=== PATIENT | female | born 1945 | race Caucasian/White ===

== ENCOUNTER → 2018-06-24 | Outpatient (CLI) | payer MEDICARE ==
--- NOTE | 2018-06-24 15:47 | RADIOLOGY REPORT (SQ) ---
EXAM DESCRIPTION: RIBS RIGHT W/PA CHEST COMPLETED DATE/TIME: 06/24/2018 3:25 pm REASON FOR STUDY: PLEURODYNIA R07.81 PLEURODYNIA COMPARISON: None. TECHNIQUE: Frontal view of the chest and additional views of the right ribs acquired. NUMBER OF VIEWS: Five views LIMITATIONS: None. FINDINGS: FRONTAL CXR: No pneumothorax. Chronic interstitial changes. RIBS: Cannot exclude nondisplaced fracture of the 8th or 9th rib laterally. This is only suggested o n a single view. OTHER: No other significant finding. IMPRESSION: Chronic lung changes. Cannot exclude a nondisplaced fracture of the right 8th or 9th ri b laterally. COMMENT: SITE OF TRAUMA/COMPLAINT MARKED/STAMP COMPLETED: YES. TECHNICAL DOCUMENTATION: JOB ID: [id number] [employer]- All Rights Reserved Reading location - IP/workstation name: [email or web address]
== END ==
LOC: OD 15:06
PROVIDERS: ATTEND Internal Medicine Medical Oncology
DX: R07.81 Pleurodynia (principal)

== ENCOUNTER 2018-09-09 11:55 | Inpatient (IN) | payer MEDICARE ==
[~2018-09-09 11:55] MED LIST: ACETAMINOPHEN 325 MG TABLET PO PRN; FUROSEMIDE INJ/PF 20 MG/2 ML SDV IV PRN
[2018-09-09 14:04] LABS: HEMATOCRIT 21.4 % (36.0-47.0); MEAN CORPUSCULAR HEMOGLOBIN 32.3 pg (27.0-33.4); MEAN CORPUSCULAR HGB CONC 36.7 g/dL (32.0-36.0); MEAN CORPUSCULAR VOLUME 88 fl (80-97); PLATELET COUNT 333 10^3/uL (150-450); RED BLOOD COUNT 2.43 10^6/uL (3.72-5.28); RED CELL DISTRIBUTION WIDTH 22.7 % (11.5-14.0); WHITE BLOOD COUNT 2.7 10^3/uL (4.0-10.5)
[2018-09-09 14:07] LABS: HEMOGLOBIN 7.8 g/dL (12.0-15.5)
[2018-09-09] MEDS: DIPHENHYDRAMINE HCL 25 MG CAPSULE PO PRN ×2 (15:43→20:24)
[2018-09-09] MEDS ORDERED: LIDOCAINE 2% VISCOUS SOLN 20 ML UDCUP PO PRN (18:50)
[2018-09-09] MEDS ORDERED: ALBUTEROL SULFATE HFA (90 MCG/PUFF) 8 GM MDI (1 MDI/ER DISP) IH PRN (19:05)
--- NOTE | 2018-09-09 19:05 | PDOC H&P ---
History of Present Illness Admission Date/PCP: 09/09/18 11:55 NICK DONALDSON MD Patient complains of: Symptomatic Anemia History of Present Illness: ODALYS LOPEZ is a 73 year old female patient of Dr. Donaldson recently diagnosed with non-small cell squamous lung cancer currently on radiation therapy who presented with worsening hemoglobin of abrupt drop and associated dysphagia. She reported shortness of breath and significant desaturation off supplemental oxygen. She denied any bloody or tarry stool. She reported no bowel movement for last 2 days. No dizziness, headache, or loss of consciousness. Patient reported that her pain with swallowing is more severe beneath her radiation marker area. She reported significant coughing with eating and swallowing. Past Medical History Cardiac Medical History: Reports: None Pulmonary Medical History: Reports: Chronic Obstructive Pulmonary Disease (COPD) , Other - Hoarseness EENT Medical History: Reports: None Neurological Medical History: Reports: None Endocrine Medical History: Reports: None Malignancy Medical History: Reports: Lung Cancer Psychiatric Medical History: Reports: Depression Hematology: Reports: Other - Excessive postexertional fatigue Social History Smoking Status: Former Smoker Number of Years Smokin Frequency of Alcohol Use: None Hx Recreational Drug Use: No Drugs: None Hx Prescription Drug Abuse: No Family History Parental Family History Reviewed: Yes Children Family History Reviewed: Yes Sibling(s) Family History Reviewed.: Yes Medication/Allergy Home Medications: Albuterol Sulfate [Ventolin HFA MDI 18 GM] 2 puff IH Q6HP PRN 09/09/18 Alprazolam [Xanax 0.5 mg Tablet] 0.5 mg PO QHS 09/09/18 Amitriptyline HCl [Elavil 50 mg Tablet] 50 mg PO QHS 09/09/18 Aripiprazole [Abilify 10 mg Tablet] 10 mg PO DAILY 09/09/18 Calcium Carbonate [Calcium] 1,250 mg PO BIDBS 09/09/18 Cetirizine HCl [Zyrtec 10 mg Tablet] 10 mg PO DAILY 09/09/18 Cholecalciferol (Vitamin D3) [Vitamin D3 400 Unit Tablet] 200 unit PO BIDBS Cholecalciferol (Vitamin D3) [Vitamin D3 400 Unit Tablet] 400 unit PO DAILY Esomeprazole Magnesium [Nexium] 40 mg PO Q6AM 09/09/18 Gemfibrozil [Lopid 600 mg Tablet] 600 mg PO BIDACBS 09/09/18 Hydrochlorothiazide [Hydrodiuril 25 mg Tablet] 25 mg PO DAILY 09/09/18 Magnesium Oxide [Magnesium] 250 mg PO DAILY 09/09/18 Nystatin [Mycostatin Ointment 15 gm] 1 applic TOP BID 09/09/18 Ondansetron HCl [Zofran 8 mg Tablet] 8 mg PO .SEE COMMENTS 09/09/18 Potassium Chloride [K-Tab ER] 40 meq PO BID 09/09/18 Allergies/Adverse Reactions: codeine Allergy (Verified 09/09/18 13:50) Review of Systems Constitutional: PRESENT: fatigue, weakness Eyes: ABSENT: visual disturbances Ears: ABSENT: hearing changes Nose, Mouth, and Throat: ABSENT: headache(s), mouth pain, sore throat, vertigo, other Cardiovascular: PRESENT: dyspnea on exertion Respiratory: PRESENT: cough, dyspnea Gastrointestinal: PRESENT: constipation, dysphagia Genitourinary: ABSENT: dysuria, hematuria Musculoskeletal: ABSENT: joint swelling Integumentary: ABSENT: rash, wounds Neurological: ABSENT: abnormal gait, abnormal speech, confusion, dizziness, focal weakness, syncope Endocrine: ABSENT: cold intolerance, heat intolerance, polydipsia, polyuria Hematologic/Lymphatic: PRESENT: lymphadenopathy Allergic/Immunologic: ABSENT: as per HPI, seasonal rhinorrhea, other Physical Exam Vital Signs: Temp Pulse Resp BP Pulse Ox 98.0 F 109 H 16 103/51 L 89 L 09/09/18 17:54 09/09/18 17:54 09/09/18 17:54 09/09/18 17:54 09/09/18 17:54 Intake & Output 09/08/18 09/09/18 09/10/18 06:59 06:59 06:59 Intake Total 0 Balance 0 Weight 54 kg General appearance: PRESENT: mild distress - on supplemental oxygen via nasal cannula Head exam: PRESENT: atraumatic, normocephalic Eye exam: PRESENT: conjunctiva pink, EOMI, PERRLA. ABSENT: scleral icterus Ear exam: PRESENT: normal external ear exam Mouth exam: PRESENT: moist Teeth exam: ABSENT: dental caries, dental tenderness, edentulous, poor dentation , other Throat exam: ABSENT: post pharyngeal erythema, tonsillar erythema, tonsillar exudate, tonsillogmegaly, other Neck exam: PRESENT: full ROM. ABSENT: carotid bruit, JVD, lymphadenopathy, thyromegaly Respiratory exam: PRESENT: clear to auscultation obdulia Cardiovascular exam: PRESENT: RRR. ABSENT: diastolic murmur, rubs, systolic murmur Pulses: PRESENT: +2 pedal pulses bilateral Vascular exam: PRESENT: normal capillary refill, pallor GI/Abdominal exam: PRESENT: normal bowel sounds, soft. ABSENT: distended, guarding, mass, organolmegaly, rebound, tenderness Rectal exam: PRESENT: deferred Extremities exam: ABSENT: pedal edema Musculoskeletal exam: PRESENT: normal inspection Neurological exam: PRESENT: alert, awake, oriented to person, oriented to place , oriented to time, oriented to situation, CN II-XII grossly intact. ABSENT: motor sensory deficit Psychiatric exam: PRESENT: appropriate affect, normal mood. ABSENT: homicidal ideation, suicidal ideation Skin exam: PRESENT: dry, warm. ABSENT: rash Results Laboratory Results: 09/09/18 13:33 09/09/18 09/09/18 13:33 13:33 WBC 2.7 L RBC 2.43 L Hgb 7.8 L Hct 21.4 L MCV 88 MCH 32.3 MCHC 36.7 H RDW 22.7 H Plt Count 333 Blood Type O POSITIVE Antibody Screen NEGATIVE Assessment & Plan - Diagnosis (1) Symptomatic anemia Is this a current diagnosis for this admission?: Yes Plan: See admitting attending physician. (2) Radiation-induced esophagitis Is this a current diagnosis for this admission?: Yes Plan: See admitting attending physician. (3) Chronic obstructive pulmonary disease with hypoxia Is this a current diagnosis for this admission?: Yes Plan: See admitting attending physician. (4) Persistent insomnia Is this a current diagnosis for this admission?: Yes Plan: See admitting attending physician. (5) Malignant neoplasm of middle lobe of right lung Is this a current diagnosis for this admission?: Yes Plan: See admitting attending physician. (6) HLD (hyperlipidemia) Qualifiers: Hyperlipidemia type: unspecified Qualified Code(s): E78.5 - Hyperlipidemia , unspecified Is this a current diagnosis for this admission?: Yes Plan: See admitting attending physician. (7) Depression Qualifiers: Depression Type: major depressive disorder Is this a current diagnosis for this admission?: Yes Plan: See admitting attending physician. - Time Time Spent: 50 to 70 Minutes Medications reviewed and adjusted accordingly: Yes Anticipated discharge: Home with Homehealth Within: Other - Inpatient Certification Based on my medical assessment, after consideration of the patient's comorbidities, presenting symptoms, or acuity I expect that the services needed warrant INPATIENT care.: Yes I certify that my determination is in accordance with my understanding of Medicare's requirements for reasonable and necessary INPATIENT services [42 CFR 412.3e].: Yes Medical Necessity: Need Close Monitoring Due to Risk of Patient Decompensation, Need For IV Fluids, Risk of Complication if Not Cared For in Hospital Post Hospital Care: D/C Cuff Setter Lockstitch Documentation - Plan Summary Plan Summary: See admitting attending physician. I discussed case with Dr. Donaldson and Dr. Webster, nuclear auxiliary operator. I discussed at length with patient and family at bedside regarding care plan.
[2018-09-09] MEDS ORDERED: ONDANSETRON HCL 8 MG TABLET PO SCH (19:15)
[2018-09-09] MEDS ORDERED: ALBUTEROL SULFATE HFA (90 MCG/PUFF) 200 PUFF/8.5 GM MDI IH PRN (19:22)
--- NOTE | 2018-09-09 19:23 | PDOC CONSULTATION ---
Consultation Consult Date: 09/09/18 History of Present Illness Admission Date/PCP: 09/09/18 11:55 NICK DONALDSON MD History of Present Illness: ODALYS LOPEZ is a 73 year old female patient was admitted today with drop in H&H and odynophagia. Her admission hemoglobin was 7 while it was 12 on 08/25/2018. She has not had any hematemesis, melena or bright red blood per rectum. Her main complaint is that of odynophagia that started about 2 weeks ago. She has pain whenever she drinks or eats but she is able to get the food down. She has been drinking ice cold drinks and sometimes very hard foods. She takes a PPI and has been on this for years. She has been receiving radiation to her chest for her lung cancer over the last 2 months. She is also receiving chemotherapy. I reviewed her hemoglobin trend and has been going down slowly over the last few weeks. Past Medical History Cardiac Medical History: Reports: None Pulmonary Medical History: Reports: Chronic Obstructive Pulmonary Disease (COPD) , Other - Hoarseness EENT Medical History: Reports: None, Other - Excessive postexertional fatigue Neurological Medical History: Reports: None Endocrine Medical History: Reports: None Malignancy Medical History: Reports: Lung Cancer Psychiatric Medical History: Reports: Depression Hematology: Reports: Other - Excessive postexertional fatigue Social History Smoking Status: Former Smoker Number of Years Smokin Frequency of Alcohol Use: None Hx Recreational Drug Use: No Drugs: None Hx Prescription Drug Abuse: No Family History Parental Family History Reviewed: No Children Family History Reviewed: NA Sibling(s) Family History Reviewed.: NA Medication/Allergy Home Medications: Albuterol Sulfate [Ventolin HFA MDI 18 GM] 2 puff IH Q6HP PRN 09/09/18 Alprazolam [Xanax 0.5 mg Tablet] 0.5 mg PO QHS 09/09/18 Amitriptyline HCl [Elavil 50 mg Tablet] 50 mg PO QHS 09/09/18 Aripiprazole [Abilify 10 mg Tablet] 10 mg PO DAILY 09/09/18 Calcium Carbonate [Calcium] 1,250 mg PO BIDBS 09/09/18 Cetirizine HCl [Zyrtec 10 mg Tablet] 10 mg PO DAILY 09/09/18 Cholecalciferol (Vitamin D3) [Vitamin D3 400 Unit Tablet] 200 unit PO BIDBS Cholecalciferol (Vitamin D3) [Vitamin D3 400 Unit Tablet] 400 unit PO DAILY Esomeprazole Magnesium [Nexium] 40 mg PO Q6AM 09/09/18 Gemfibrozil [Lopid 600 mg Tablet] 600 mg PO BIDACBS 09/09/18 Hydrochlorothiazide [Hydrodiuril 25 mg Tablet] 25 mg PO DAILY 09/09/18 Magnesium Oxide [Magnesium] 250 mg PO DAILY 09/09/18 Nystatin [Mycostatin Ointment 15 gm] 1 applic TOP BID 09/09/18 Ondansetron HCl [Zofran 8 mg Tablet] 8 mg PO .SEE COMMENTS 09/09/18 Potassium Chloride [K-Tab ER] 40 meq PO BID 09/09/18 Allergies/Adverse Reactions: codeine Allergy (Verified 09/09/18 13:50) Review of Systems All systems: reviewed and no additional remarkable complaints except as stated Physical Exam Vital Signs: Temp Pulse Resp BP Pulse Ox 97.4 F 104 H 16 126/68 H 99 09/09/18 18:39 09/09/18 18:39 09/09/18 18:39 09/09/18 18:39 09/09/18 18:39 Intake & Output 09/08/18 09/09/18 09/10/18 06:59 06:59 06:59 Intake Total 300 Balance 300 Weight 54 kg Exam: General: Patient is alert and looks well. HEENT: There is pallor but no jaundice. PERRLA. Oropharynx normal Respiratory: She has kyphosis no respiratory distress. Chest wall palpitation was unremarkable. Breath sounds were normal Cardiovascular: Heart sounds 1 and 2 normal with no murmurs. Abdominal: Not distended. Soft and nontender. Liver and spleen not palpable. No ascites demonstrated. Bowel sounds active. Rectal examination was deferred. Extremities: No edema Neurological: Alert and oriented x4. Grossly nonfocal. Normal speech Skin: No significant rash Psychological: Normal affect Results Laboratory Results: 09/09/18 13:33 09/09/18 09/09/18 13:33 13:33 WBC 2.7 L RBC 2.43 L Hgb 7.8 L Hct 21.4 L MCV 88 MCH 32.3 MCHC 36.7 H RDW 22.7 H Plt Count 333 Blood Type O POSITIVE Antibody Screen NEGATIVE Assessment & Plan - Diagnosis (1) Odynophagia Is this a current diagnosis for this admission?: Yes Plan: She has had odynophagia for the last few weeks and this is most likely from radiation esophagitis. She has been eating and drinking very cold and sometimes very hot foods and I advised against this. I would suggest we increase her PPI to twice a day, use Carafate 4 times a day for 10 days and Viscous Lidocaine before meals. If her symptoms continue I will then perform an endoscopy.. (2) Anemia Qualifiers: Folate deficiency anemia type: drug-induced Is this a current diagnosis for this admission?: Yes Plan: I suspect her anemia is related to her chemotherapy as her hemoglobin has been dropping gradually over the last few weeks. She has not had any obvious GI blood loss. I would hold off on endoscopies at this time unless obvious GI blood loss becomes a problem. She will continue to follow-up with Dr. Donaldson (3) Radiation-induced esophagitis Is this a current diagnosis for this admission?: Yes
[2018-09-09] MEDS ORDERED: BISACODYL 10 MG SUPP.RECT PR ONE (20:00)
[2018-09-09] MEDS: LANSOPRAZOLE 30 MG TAB.RAP.DR PO SCH (20:22)
[2018-09-09] MEDS: SUCRALFATE SUSP 1 GM/10 ML UDCUP PO SCH (20:22)
[2018-09-09 20:29] LABS: ALANINE AMINOTRANSFERASE 37 U/L (9-52); ALBUMIN 3.4 g/dL (3.5-5.0); ALKALINE PHOSPHATASE 123 U/L (38-126); ANION GAP 8 (5-19); ASPARTATE AMINO TRANSFERASE 22 U/L (14-36); BILIRUBIN,DIRECT 0.5 mg/dL (0.0-0.4); BILIRUBIN,TOTAL 1.3 mg/dL (0.2-1.3); BLOOD UREA NITROGEN 10 mg/dL (7-20); CALCIUM 8.6 mg/dL (8.4-10.2); CARBON DIOXIDE 28 mmol/L (22-30); CHLORIDE 103 mmol/L (98-107); GLUCOSE 90 mg/dL (75-110); SODIUM 138.8 mmol/L (137-145); TOTAL PROTEIN 6.2 g/dL (6.3-8.2)
[2018-09-09] MEDS ORDERED: POTASSIUM CHLORIDE 20 MEQ/50 ML RTU IV SCH (22:45)
[2018-09-09] MEDS: AMITRIPTYLINE HCL 50 MG TABLET PO SCH (23:01)
[2018-09-09] MEDS: ALPRAZOLAM 0.5 MG TABLET PO SCH (23:01)
[2018-09-10] MEDS: MAGNESIUM SULFATE 1 GM/D5W 100 ML IV SCH ×2 (00:16→01:45)
[2018-09-10] MEDS: SUCRALFATE SUSP 1 GM/10 ML UDCUP PO SCH ×4 (00:45→17:35)
[2018-09-10] MEDS ORDERED: BISACODYL 10 MG SUPP.RECT PR ONE (01:00)
[2018-09-10] MEDS: POTASSIUM CHLORIDE 20 MEQ/50 ML RTU IV SCH ×5 (03:03→16:56)
[2018-09-10] MEDS: LANSOPRAZOLE 30 MG TAB.RAP.DR PO SCH ×2 (06:43→17:34)
[2018-09-10] MEDS: CALCIUM CARBONATE 500 MG TABLET PO SCH ×2 (09:48→17:32)
[2018-09-10] MEDS: HYDROCHLOROTHIAZIDE 25 MG TABLET PO SCH (09:49)
[2018-09-10] MEDS: CHOLECALCIFEROL (D3) 400 UNIT TABLET PO SCH ×3 (09:50→17:33)
[2018-09-10] MEDS: CETIRIZINE 10 MG TABLET PO SCH (09:53)
[2018-09-10] MEDS: GEMFIBROZIL 600 MG TABLET PO SCH ×2 (09:53→17:34)
[2018-09-10] MEDS: ARIPIPRAZOLE 5 MG TABLET PO SCH (09:53)
[2018-09-10] MEDS: NYSTATIN OINTMENT 15 GM TUBE TOP SCH ×2 (09:54→17:36)
[2018-09-10] MEDS ORDERED: (PENDING PHARMACY ID) (Aripiprazole [Abilify 10 Mg Tablet] 10 MG) PO SCH (10:00)
[2018-09-10] MEDS ORDERED: (PENDING PHARMACY ID) (Magnesium Oxide [Magnesium] 250 MG) PO SCH (10:00)
[2018-09-10 12:20] LABS: ANION GAP 7 (5-19); BLOOD UREA NITROGEN 8 mg/dL (7-20); CALCIUM 8.5 mg/dL (8.4-10.2); CARBON DIOXIDE 30 mmol/L (22-30); CHLORIDE 99 mmol/L (98-107); GLUCOSE 119 mg/dL (75-110); POTASSIUM 3.5 mmol/L (3.6-5.0); SODIUM 135.8 mmol/L (137-145)
[2018-09-10 12:50] LABS: HEMATOCRIT 30.1 % (36.0-47.0); MEAN CORPUSCULAR HEMOGLOBIN 31.4 pg (27.0-33.4); MEAN CORPUSCULAR HGB CONC 35.9 g/dL (32.0-36.0); MEAN CORPUSCULAR VOLUME 87 fl (80-97); PLATELET COUNT 320 10^3/uL (150-450); RED BLOOD COUNT 3.45 10^6/uL (3.72-5.28); RED CELL DISTRIBUTION WIDTH 19.2 % (11.5-14.0); WHITE BLOOD COUNT 3.4 10^3/uL (4.0-10.5)
[2018-09-10 12:51] LABS: HEMOGLOBIN 10.8 g/dL (12.0-15.5)
[2018-09-10 12:53] LABS: ABSOLUTE LYMPHOCYTES# (MANUAL) 0.6 10^3/uL (0.5-4.7); ABSOLUTE MONOCYTES # (MANUAL) 0.2 10^3/uL (0.1-1.4); ABSOLUTE NEUTROPHILS# (MANUAL) 2.6 10^3/uL (1.7-8.2); ANISOCYTOSIS 2+; BASOPHILS % (MANUAL) 0 % (0-2); EOSINOPHILS % (MANUAL) 0 % (0-6); LYMPHOCYTES % (MANUAL) 18 % (13-45); MONOCYTES % (MANUAL) 7 % (3-13); NUCLEATED RED BLOOD CELLS 1 /100 WBC (0); OVALOCYTES 1+; PLATELET COMMENT ADEQUATE; POIKILOCYTOSIS 1+; SEGMENTED NEUTROPHILS % (MAN) 75 % (42-78); TOTAL CELLS COUNTED 100
[2018-09-10] MEDS ORDERED: ONDANSETRON HCL INJ/PF 4 MG/2 ML SDV IV PRN (13:32)
--- NOTE | 2018-09-10 18:48 | PDOC PROGRESS REPORT ---
Subjective Progress Note for:: 09/10/18 Subjective:: Patient continue to express significant pain and discomfort with swallowing. PO intake very limited so far today. s/p radiation therapy today at the time of m bedside evaluation. No fever or chills. Nausea with coughing following attempt at eating earlier today. No bowel movement so far since admission. Reason For Visit: LUNG CA,ANEMIA,POSSIBLE GI BLEEDING Physical Exam Vital Signs: Temp Pulse Resp BP Pulse Ox 98.2 F 107 H 16 110/67 93 09/10/18 16:00 09/10/18 16:00 09/10/18 16:00 09/10/18 16:00 09/10/18 16:00 Intake & Output 09/09/18 09/10/18 09/11/18 06:59 06:59 06:59 Intake Total 1344 100 Balance 1344 100 Weight 54 kg General appearance: PRESENT: no acute distress, mild distress - on supplemental oxygen via nassal cannula at 2L/min Head exam: PRESENT: atraumatic, normocephalic Eye exam: PRESENT: conjunctiva pink, EOMI, PERRLA. ABSENT: scleral icterus Ear exam: PRESENT: normal external ear exam Mouth exam: PRESENT: moist Respiratory exam: PRESENT: clear to auscultation obdulia Cardiovascular exam: PRESENT: RRR. ABSENT: diastolic murmur, rubs, systolic murmur Vascular exam: PRESENT: normal capillary refill. ABSENT: pallor GI/Abdominal exam: PRESENT: normal bowel sounds, soft. ABSENT: distended, guarding, mass, organolmegaly, rebound, tenderness Extremities exam: ABSENT: pedal edema Musculoskeletal exam: PRESENT: normal inspection Neurological exam: PRESENT: alert, awake, oriented to person, oriented to place , oriented to time, oriented to situation, CN II-XII grossly intact. ABSENT: motor sensory deficit Psychiatric exam: PRESENT: appropriate affect, normal mood. ABSENT: homicidal ideation, suicidal ideation Skin exam: PRESENT: dry, intact, warm. ABSENT: cyanosis, rash Results Laboratory Results: 09/10/18 10:25 09/10/18 10:25 09/09/18 09/09/18 09/09/18 13:33 20:00 20:48 WBC RBC Hgb Hct MCV MCH MCHC RDW Plt Count Seg Neutrophils % Lymphocytes % Monocytes % Eosinophils % Basophils % Absolute Neutrophils Absolute Lymphocytes Absolute Monocytes Absolute Eosinophils Absolute Basophils Sodium 138.8 Potassium 3.0 L* Chloride 103 Carbon Dioxide 28 Anion Gap 8 BUN 10 Creatinine 0.77 Est GFR ( Amer) > 60 Est GFR (Non-Af Amer) > 60 Glucose 90 Calcium 8.6 Magnesium 1.1 L* Total Bilirubin 1.3 AST 22 ALT 37 Alkaline Phosphatase 123 Total Protein 6.2 L Albumin 3.4 L Blood Type O POSITIVE Antibody Screen NEGATIVE 09/10/18 09/10/18 10:25 10:25 WBC 3.4 L RBC 3.45 L Hgb 10.8 L D Hct 30.1 L MCV 87 MCH 31.4 MCHC 35.9 RDW 19.2 H Plt Count 320 Seg Neutrophils % Not Reportable Lymphocytes % Not Reportable Monocytes % Not Reportable Eosinophils % Not Reportable Basophils % Not Reportable Absolute Neutrophils Not Reportable Absolute Lymphocytes Not Reportable Absolute Monocytes Not Reportable Absolute Eosinophils Not Reportable Absolute Basophils Not Reportable Sodium 135.8 L Potassium 3.5 L Chloride 99 Carbon Dioxide 30 Anion Gap 7 BUN 8 Creatinine 0.71 Est GFR ( Amer) > 60 Est GFR (Non-Af Amer) > 60 Glucose 119 H Calcium 8.5 Magnesium 1.9 Total Bilirubin AST ALT Alkaline Phosphatase Total Protein Albumin Blood Type Antibody Screen Assessment & Plan - Diagnosis (1) Symptomatic anemia Is this a current diagnosis for this admission?: Yes Plan: Improved post transfusion of 2 units PRBC. (2) Radiation-induced esophagitis Is this a current diagnosis for this admission?: Yes Plan: See attending physician orders. (3) Chronic obstructive pulmonary disease with hypoxia Is this a current diagnosis for this admission?: Yes (4) Persistent insomnia Is this a current diagnosis for this admission?: Yes (5) Malignant neoplasm of middle lobe of right lung Is this a current diagnosis for this admission?: Yes Plan: Scheduled for radiation treatment today. (6) HLD (hyperlipidemia) Qualifiers: Hyperlipidemia type: unspecified Qualified Code(s): E78.5 - Hyperlipidemia , unspecified Is this a current diagnosis for this admission?: Yes (7) Depression Qualifiers: Depression Type: major depressive disorder Is this a current diagnosis for this admission?: Yes (8) Constipation Qualifiers: Constipation type: unspecified constipation type Qualified Code(s): K59.00 - Constipation, unspecified Is this a current diagnosis for this admission?: Yes Plan: See attending physician orders. - Time Time Spent with patient: 25-34 minutes Medications reviewed and adjusted accordingly: Yes Anticipated discharge: Home with Homehealth Within: Other - Inpatient Certification Based on my medical assessment, after consideration of the patient's comorbidities, presenting symptoms, or acuity I expect that the services needed warrant INPATIENT care.: Yes I certify that my determination is in accordance with my understanding of Medicare's requirements for reasonable and necessary INPATIENT services [42 CFR 412.3e].: Yes Medical Necessity: Need Close Monitoring Due to Risk of Patient Decompensation, Need For IV Fluids, Need for Pain Control, Risk of Complication if Not Cared For in Hospital Post Hospital Care: D/C Baker Helper Documentation - Plan Summary Plan Summary: Change viscous lidocaine to ac schedule. Consider oral supplementation and puree diet to maintain adequate intake. Lactulose 30 mL po x 1 dose. Continue other current medication management.
[2018-09-10] MEDS: AMITRIPTYLINE HCL 50 MG TABLET PO SCH (21:15)
[2018-09-10] MEDS: ALPRAZOLAM 0.5 MG TABLET PO SCH (21:15)
[2018-09-10] MEDS: NORMAL SALINE 250 ML IV PRN (21:15)
[2018-09-11] MEDS: SUCRALFATE SUSP 1 GM/10 ML UDCUP PO SCH ×3 (01:39→13:20)
[2018-09-11] MEDS: NORMAL SALINE 250 ML IV PRN (05:43)
[2018-09-11] MEDS: LANSOPRAZOLE 30 MG TAB.RAP.DR PO SCH ×2 (05:44→17:36)
[2018-09-11] MEDS: LIDOCAINE 2% VISCOUS SOLN 20 ML UDCUP PO SCH ×2 (08:52→12:00)
[2018-09-11] MEDS: CALCIUM CARBONATE 500 MG TABLET PO SCH (09:20)
[2018-09-11] MEDS: HYDROCHLOROTHIAZIDE 25 MG TABLET PO SCH (09:21)
[2018-09-11] MEDS: CHOLECALCIFEROL (D3) 400 UNIT TABLET PO SCH ×2 (09:22)
[2018-09-11] MEDS: CETIRIZINE 10 MG TABLET PO SCH (09:24)
[2018-09-11] MEDS: NYSTATIN OINTMENT 15 GM TUBE TOP SCH ×2 (09:24→18:53)
[2018-09-11] MEDS: ARIPIPRAZOLE 5 MG TABLET PO SCH (09:24)
[2018-09-11] MEDS: GEMFIBROZIL 600 MG TABLET PO SCH ×2 (09:24→17:35)
--- NOTE | 2018-09-11 11:40 | Physician Advisory Note ---
Physician Advisor ProgressNote .: Pursuant to the plan for [facility], I have reviewed the medical record for this patient. Physician Advisor Statement: Please consider documenting, if you agree: 1. "Chronic Hypoxemic Respiratory Failure, uses 2L O2 at baseline" 2. "Precipitous drop in H/H, suspect due to " (due to acute blood loss due to radiation esophagitis, or ....?) - If so, please state what was her prior H/H level(s), w/date(s), to support the report of abrupt drop. Thanks! CK
--- NOTE | 2018-09-11 20:06 | PDOC PROGRESS REPORT ---
Subjective Progress Note for:: 09/11/18 Subjective:: Patient reported tolerance of p.o intake with current treatment regimen including PPI, Carafate, viscous lidocaine and normal temperature puree food and oral supplementation. She reported bowel movement x 2 so far today. Reason For Visit: LUNG CA,ANEMIA,POSSIBLE GI BLEEDING Physical Exam Vital Signs: Temp Pulse Resp BP Pulse Ox 97.7 F 116 H 18 115/61 91 L 09/11/18 15:11 09/11/18 15:11 09/11/18 15:11 09/11/18 15:11 09/11/18 15:11 Intake & Output 09/10/18 09/11/18 09/12/18 06:59 06:59 06:59 Intake Total 1344 800 634 Output Total 500 Balance 1344 300 634 Weight 54 kg 56.4 kg Physical Exam: General appearance: PRESENT: no acute distress, mild distress - on supplemental oxygen via nasal cannula at 2L/min Head exam: PRESENT: atraumatic, normocephalic Eye exam: PRESENT: conjunctiva pink. ABSENT: scleral icterus Ear exam: PRESENT: normal external ear exam Mouth exam: PRESENT: moist Respiratory exam: PRESENT: clear to auscultation obdulia Cardiovascular exam: PRESENT: RRR. ABSENT: diastolic murmur, rubs, systolic murmur Vascular exam: PRESENT: normal capillary refill. ABSENT: pallor GI/Abdominal exam: PRESENT: normal bowel sounds, soft. ABSENT: distended, guarding, mass, organomegaly, rebound, tenderness Extremities exam: ABSENT: pedal edema Musculoskeletal exam: PRESENT: normal inspection Neurological exam: PRESENT: alert, awake, oriented to person, oriented to place , oriented to time, oriented to situation, CN II-XII grossly intact. ABSENT: motor sensory deficit Psychiatric exam: PRESENT: appropriate affect, normal mood. ABSENT: homicidal ideation, suicidal ideation Skin exam: PRESENT: dry, intact, warm. ABSENT: cyanosis, rash Results Laboratory Results: 09/10/18 10:25 09/10/18 10:25 Assessment & Plan - Diagnosis (1) Symptomatic anemia Is this a current diagnosis for this admission?: Yes (2) Radiation-induced esophagitis Is this a current diagnosis for this admission?: Yes (3) Chronic obstructive pulmonary disease with hypoxia Is this a current diagnosis for this admission?: Yes (4) Persistent insomnia Is this a current diagnosis for this admission?: Yes (5) Malignant neoplasm of middle lobe of right lung Is this a current diagnosis for this admission?: Yes (6) HLD (hyperlipidemia) Qualifiers: Hyperlipidemia type: unspecified Qualified Code(s): E78.5 - Hyperlipidemia , unspecified Is this a current diagnosis for this admission?: Yes (7) Depression Qualifiers: Depression Type: major depressive disorder Is this a current diagnosis for this admission?: Yes (8) Constipation Qualifiers: Constipation type: unspecified constipation type Qualified Code(s): K59.00 - Constipation, unspecified Is this a current diagnosis for this admission?: Yes - Time Time Spent with patient: 25-34 minutes Medications reviewed and adjusted accordingly: Yes Anticipated discharge: Home with Homehealth Within: Other - Inpatient Certification Based on my medical assessment, after consideration of the patient's comorbidities, presenting symptoms, or acuity I expect that the services needed warrant INPATIENT care.: Yes I certify that my determination is in accordance with my understanding of Medicare's requirements for reasonable and necessary INPATIENT services [42 CFR 412.3e].: Yes Medical Necessity: Need Close Monitoring Due to Risk of Patient Decompensation, Risk of Complication if Not Cared For in Hospital Post Hospital Care: D/C Gear Machine Operator General Documentation - Plan Summary Plan Summary: Continue current medication management. Obtain CBC with diff, CMP, and Mag in AM.
[2018-09-11] MEDS: ALPRAZOLAM 0.5 MG TABLET PO SCH (22:26)
[2018-09-11] MEDS: AMITRIPTYLINE HCL 50 MG TABLET PO SCH (22:26)
[2018-09-12] MEDS: SUCRALFATE SUSP 1 GM/10 ML UDCUP PO SCH ×5 (06:44→17:06)
[2018-09-12] MEDS: LANSOPRAZOLE 30 MG TAB.RAP.DR PO SCH ×2 (06:47→17:06)
[2018-09-12] MEDS: LIDOCAINE 2% VISCOUS SOLN 20 ML UDCUP PO SCH ×5 (08:08→17:06)
[2018-09-12] MEDS: GEMFIBROZIL 600 MG TABLET PO SCH ×2 (08:09→17:06)
[2018-09-12] MEDS: CHOLECALCIFEROL (D3) 400 UNIT TABLET PO SCH ×4 (08:09→17:06)
[2018-09-12] MEDS: CALCIUM CARBONATE 500 MG TABLET PO SCH ×3 (08:09→17:06)
[2018-09-12 09:40] LABS: HEMATOCRIT 34.6 % (36.0-47.0); HEMOGLOBIN 12.2 g/dL (12.0-15.5); MEAN CORPUSCULAR HEMOGLOBIN 31.9 pg (27.0-33.4); MEAN CORPUSCULAR HGB CONC 35.2 g/dL (32.0-36.0); PLATELET COUNT 299 10^3/uL (150-450); RED BLOOD COUNT 3.82 10^6/uL (3.72-5.28); RED CELL DISTRIBUTION WIDTH 20.3 % (11.5-14.0); WHITE BLOOD COUNT 2.8 10^3/uL (4.0-10.5)
[2018-09-12 09:50] LABS: MEAN CORPUSCULAR VOLUME 91 fl (80-97)
[2018-09-12 09:55] LABS: ALANINE AMINOTRANSFERASE 30 U/L (9-52); ALBUMIN 3.7 g/dL (3.5-5.0); ALKALINE PHOSPHATASE 144 U/L (38-126); ANION GAP 10 (5-19); ASPARTATE AMINO TRANSFERASE 25 U/L (14-36); BILIRUBIN,DIRECT 0.2 mg/dL (0.0-0.4); BILIRUBIN,TOTAL 0.8 mg/dL (0.2-1.3); BLOOD UREA NITROGEN 9 mg/dL (7-20); CALCIUM 9.8 mg/dL (8.4-10.2); CARBON DIOXIDE 31 mmol/L (22-30); CHLORIDE 98 mmol/L (98-107); GLUCOSE 125 mg/dL (75-110); POTASSIUM 3.6 mmol/L (3.6-5.0); SODIUM 139.1 mmol/L (137-145); TOTAL PROTEIN 6.7 g/dL (6.3-8.2)
[2018-09-12] MEDS ORDERED: MAGNESIUM OXIDE 400 MG TABLET PO SCH (10:00)
[2018-09-12 10:09] LABS: ABSOLUTE LYMPHOCYTES# (MANUAL) 0.6 10^3/uL (0.5-4.7); ABSOLUTE MONOCYTES # (MANUAL) 0.6 10^3/uL (0.1-1.4); ABSOLUTE NEUTROPHILS# (MANUAL) 1.6 10^3/uL (1.7-8.2); BASOPHILS % (MANUAL) 0 % (0-2); EOSINOPHILS % (MANUAL) 0 % (0-6); LYMPHOCYTES % (MANUAL) 21 % (13-45); MONOCYTES % (MANUAL) 21 % (3-13); POLYCHROMASIA SLIGHT; SEGMENTED NEUTROPHILS % (MAN) 57 % (42-78); TOTAL CELLS COUNTED 100
[2018-09-12 10:10] LABS: ANISOCYTOSIS 2+; OVALOCYTES SLIGHT; PLATELET COMMENT ADEQUATE; POIKILOCYTOSIS 1+; STOMATOCYTES SLIGHT
[2018-09-12] MEDS: HYDROCHLOROTHIAZIDE 25 MG TABLET PO SCH (10:10)
[2018-09-12] MEDS: NYSTATIN OINTMENT 15 GM TUBE TOP SCH ×2 (10:10→17:07)
[2018-09-12] MEDS: ARIPIPRAZOLE 5 MG TABLET PO SCH (10:12)
[2018-09-12] MEDS: CETIRIZINE 10 MG TABLET PO SCH (10:12)
--- NOTE | 2018-09-12 15:24 | PDOC DISCHARGE SUMMARY ---
General - Admit/Disc Date/PCP Admission Date/Primary Care Provider: 09/09/18 11:55 NICK DONALDSON MD Discharge Date: 09/12/18 - Discharge Diagnosis (1) Symptomatic anemia Is this a current diagnosis for this admission?: Yes (2) Radiation-induced esophagitis Is this a current diagnosis for this admission?: Yes (3) Chronic obstructive pulmonary disease with hypoxia Is this a current diagnosis for this admission?: Yes (4) Persistent insomnia Is this a current diagnosis for this admission?: Yes (5) Malignant neoplasm of middle lobe of right lung Is this a current diagnosis for this admission?: Yes (6) HLD (hyperlipidemia) Is this a current diagnosis for this admission?: Yes (7) Depression Is this a current diagnosis for this admission?: Yes (8) Constipation Is this a current diagnosis for this admission?: Yes - Additional Information Prescriptions: RX: Lidocaine HCl [Xylocaine 2% Viscous Soln 20 ml Udcup] 15 ml PO TID 30 Days # 1350 ml RX: Magnesium Oxide 400 mg PO DAILY #30 tablet RX: Sucralfate [Carafate Susp 1 gm/10 ml Udcup] 1 gm PO Q6 30 Days #900 ml Home Medications: RX: Albuterol Sulfate [Ventolin HFA MDI 18 GM] 2 puff IH Q6HP PRN 09/09/18 RX: Alprazolam [Xanax 0.5 mg Tablet] 0.5 mg PO QHS 09/09/18 RX: Amitriptyline HCl [Elavil 50 mg Tablet] 50 mg PO QHS 09/09/18 RX: Aripiprazole [Abilify 10 mg Tablet] 10 mg PO DAILY 09/09/18 RX: Calcium Carbonate [Calcium] 1,250 mg PO BIDBS 09/09/18 RX: Cetirizine HCl [Zyrtec 10 mg Tablet] 10 mg PO DAILY 09/09/18 RX: Cholecalciferol (Vitamin D3) [Vitamin D3 400 Unit Tablet] 200 unit PO BIDBS 09/09/18 RX: Cholecalciferol (Vitamin D3) [Vitamin D3 400 Unit Tablet] 400 unit PO DAILY 09/09/18 RX: Esomeprazole Magnesium [Nexium] 40 mg PO Q6AM 09/09/18 RX: Gemfibrozil [Lopid 600 mg Tablet] 600 mg PO BIDACBS 09/09/18 RX: Hydrochlorothiazide [Hydrodiuril 25 mg Tablet] 25 mg PO DAILY 09/09/18 RX: Nystatin [Mycostatin Ointment 15 gm] 1 applic TOP BID 09/09/18 RX: Ondansetron HCl [Zofran 8 mg Tablet] 8 mg PO .SEE COMMENTS 09/09/18 RX: Potassium Chloride [K-Tab ER] 40 meq PO BID 09/09/18 RX: Lidocaine HCl [Xylocaine 2% Viscous Soln 20 ml Udcup] 15 ml PO TID 30 Days # 1350 ml 09/12/18 RX: Magnesium Oxide 400 mg PO DAILY #30 tablet 09/12/18 RX: Sucralfate [Carafate Susp 1 gm/10 ml Udcup] 1 gm PO Q6 30 Days #900 ml 09/12 History of Present Illness Patient complains of: Pain with swallowing, low blood count History of Present Illness: ODALYS LOPEZ is a 73 year old female patient of Dr. Donaldson recently diagnosed with non-small cell squamous lung cancer currently on radiation therapy who presented with worsening hemoglobin of abrupt drop and associated dysphagia. She reported shortness of breath and significant desaturation off supplemental oxygen. She denied any bloody or tarry stool. She reported no bowel movement for last 2 days. No dizziness, headache, or loss of consciousness. Patient reported that her pain with swallowing is more severe beneath her radiation marker area. She reported significant coughing with eating and swallowing. Hospital Course Hospital Course: Patient was admitted for symptomatic anemia with weakness and dizziness. She was found with significantly low hemoglobin and associated desaturation off supplemental oxygen. She was transfused 2 units PRBC during this hospitalization. Her hemoglobin did improved from 7.8 to 12.2 gm/dL on . She was seen in consultation by Dr. Webster, car tester, due to odynophagia/dysphagia. She responded to increase dose in PPI, Carafate and premeal viscous Lidocaine. Her diet consistency was changed to puree and supplemented by Ensure Enliven while in the hospital. She will be discharged home today on viscous Lidocaine, Carafate, and increase in Magnesium oxide to 400 mg p.o daily. She had three sessions of radiation therapy for her lung cancer during this hospitalization. Sessions were tolerated on her current GI cocktail therapy. She will follow up with Dr Donaldson on 09/15/18 at 9:45 am. Physical Exam Vital Signs: Temp Pulse Resp BP Pulse Ox 97.4 F 114 H 18 112/68 91 L 09/12/18 11:21 09/12/18 11:21 09/12/18 11:21 09/12/18 11:21 09/12/18 11:21 Intake & Output 09/11/18 09/12/18 09/13/18 06:59 06:59 06:59 Intake Total 800 1484 Output Total 500 Balance 300 1484 Weight 56.4 kg 56.4 kg Physical Exam: General appearance: PRESENT: no acute distress, mild distress - on supplemental oxygen via nasal cannula at 2L/min Head exam: PRESENT: atraumatic, normocephalic Eye exam: PRESENT: conjunctiva pink. ABSENT: scleral icterus Ear exam: PRESENT: normal external ear exam Mouth exam: PRESENT: moist Respiratory exam: PRESENT: clear to auscultation obdulia Cardiovascular exam: PRESENT: RRR. ABSENT: diastolic murmur, rubs, systolic murmur Vascular exam: PRESENT: normal capillary refill. ABSENT: pallor GI/Abdominal exam: PRESENT: normal bowel sounds, soft. ABSENT: distended, guarding, mass, organomegaly, rebound, tenderness Extremities exam: ABSENT: pedal edema Musculoskeletal exam: PRESENT: normal inspection Neurological exam: PRESENT: alert, awake, oriented to person, oriented to place , oriented to time, oriented to situation, CN II-XII grossly intact. ABSENT: motor sensory deficit Psychiatric exam: PRESENT: appropriate affect, normal mood. ABSENT: homicidal ideation, suicidal ideation Skin exam: PRESENT: dry, intact, warm. ABSENT: cyanosis, rash Results Laboratory Results: 09/12/18 08:50 09/12/18 08:50 09/12/18 09/12/18 08:50 08:50 WBC 2.8 L RBC 3.82 Hgb 12.2 Hct 34.6 L MCV 91 D MCH 31.9 MCHC 35.2 RDW 20.3 H Plt Count 299 Seg Neutrophils % Not Reportable Lymphocytes % Not Reportable Monocytes % Not Reportable Eosinophils % Not Reportable Basophils % Not Reportable Absolute Neutrophils Not Reportable Absolute Lymphocytes Not Reportable Absolute Monocytes Not Reportable Absolute Eosinophils Not Reportable Absolute Basophils Not Reportable Sodium 139.1 Potassium 3.6 Chloride 98 Carbon Dioxide 31 H Anion Gap 10 BUN 9 Creatinine 0.67 Est GFR ( Amer) > 60 Est GFR (Non-Af Amer) > 60 Glucose 125 H Calcium 9.8 Magnesium 1.7 Total Bilirubin 0.8 AST 25 ALT 30 Alkaline Phosphatase 144 H Total Protein 6.7 Albumin 3.7 Qualifiers - * PATIENT BEING DISCHARGED WITH ANY OF THE FOLLOWING DIAGNOSIS: No Plan Discharge Plan: She will receive her radiation therapy for today and subsequently discharge home today with schedule follow up with Dr. Donaldson on 09/15/18 at 9:45 am.
[2018-09-12 15:46] VITALS: BP 92/76
== END 2018-09-12 17:22 | disposition home or self-care (01) | DRG 812 ==
LOC: 4S 11:55
PROVIDERS: ADMIT Internal Medicine Medical Oncology; ATTEND Internal Medicine Geriatric Medicine
PROC: 30233N1 Transfusion of Nonautologous Red Blood Cells into Peripheral Vein, Percutaneous Approach (ICD-10-PCS; principal; 2018-09-09)
DX: D64.81 Anemia due to antineoplastic chemotherapy (principal); C34.2 Malignant neoplasm of middle lobe, bronchus or lung; M40.209 Unspecified kyphosis, site unspecified; R13.10 Dysphagia, unspecified; T45.1X5A Adverse effect of antineoplastic and immunosuppressive drugs, initial encounter; J44.9 Chronic obstructive pulmonary disease, unspecified; R09.02 Hypoxemia; G47.00 Insomnia, unspecified; E78.00 Pure hypercholesterolemia, unspecified; F32.9 Major depressive disorder, single episode, unspecified; K59.00 Constipation, unspecified; K20.8 Other esophagitis; Y84.2 Radiological procedure and radiotherapy as the cause of abnormal reaction of the patient, or of later complication, without mention of misadventure at the time of the procedure; Z79.899 Other long term (current) drug therapy; Z88.6 Allergy status to analgesic agent; Z87.891 Personal history of nicotine dependence
CPT/HCPCS: 36415; 36430; 80048; 80053; 83735; 85025; 86850; 86900; 86901; 86920; J1940; J3475; J3480; J3490; J7050; P9016

== ENCOUNTER → 2018-12-21 | Outpatient (CLI) | payer MEDICARE ==
--- NOTE | 2018-12-22 08:21 | RADIOLOGY REPORT (SQ) ---
EXAM DESCRIPTION: PET CT SKULL/THIGH COMPLETED DATE/TIME: 12/21/2018 7:56 pm REASON FOR STUDY: MALIGNANT NEOPLASM OF MIDDLE LOBE, BRONCHUS OR LUNG C34.2 MALIGNANT NEOPLASM OF M IDDLE LOBE, BRONCHUS OR LUNG COMPARISON: Report from PET-CT [facility] 06/17/2018 RADIONUCLIDE AND DOSE: 13.9 mCi F18 FDG The route of agent administration: Intravenous FASTING BLOOD SUGAR: 64 mg/dl CONTRAST TYPE AND DOSE: No CT contrast given. TECHNIQUE: Blood glucose level was verified. Above dose of FDG was injected intravenously. 2-D seg mented attenuation correction images were obtained from the base of the skull to the midthighs. Nonc ontrast CT images were obtained for attenuation correction and fusion with emission images. CT image s were performed without oral or intravenous contrast and are not sensitive for parenchymal lesions. A series of overlapping emission PET images were obtained. Images [facility] by the radiologist. Images stored on PACS. LIMITATIONS: None. FINDINGS: HEAD AND NECK: No areas of abnormal metabolic activity in the soft tissues of the head and neck. CHEST: In the medial aspect of the right middle lobe, a 9 mm nodule persists on axial image 97/255 wi th SUV 2.2. There is minimal consolidation in the right and left posterior costophrenic sulci, with SUV 2.2. No pleural effusions. Malignant right hilar node described on 06/17/2018 is no longer identified. There is a 1.6 x 1.2 cm sub- carinal lymph node on today's study, axial image 85/255 with SUV of 1.8. There is a 1.3 x 1 cm pretracheal lymph node on axial image 69/255 with SUV 4.1. This was not mentio mary on prior PET-CT report 06/17/2018. ABDOMEN AND PELVIS: No areas of abnormal metabolic activity in the abdomen or pelvis. Expected physi ologic activity is present in the genitourinary system and bowel. PROXIMAL LOWER EXTREMITIES: No areas of abnormal metabolic activity in the soft tissues of the lower extremities. BONES: No abnormal bony activity. No folic activity anterior right 3rd rib ADDITIONAL CT FINDINGS: Advanced obstructive lung disease. Right permanent central line tip superior vena cava. Hiatal hernia. OTHER: Liver background activity 2.2 SUV. Blood pool background activity 1.6 SUV IMPRESSION: Decrease in size of right middle lobe nodule, with activity at liver baseline on today's study. Resolved right hilar lymph node, non metabolic sub- carinal lymph node today. Metabolically active 1 3 x 1 cm pretracheal lymph node, new compared to report 06/17/2018 PET-CT. TECHNICAL DOCUMENTATION: JOB ID: [id number] [employer]- All Rights Reserved Reading location - IP/workstation name: [email or web address]
== END ==
LOC: RAD 16:01
PROVIDERS: ATTEND Internal Medicine Medical Oncology
DX: C34.2 Malignant neoplasm of middle lobe, bronchus or lung (principal)
CPT/HCPCS: 78815; A9552

== ENCOUNTER → 2019-04-05 | Outpatient (CLI) | payer MEDICARE ==
--- NOTE | 2019-04-06 09:49 | RADIOLOGY REPORT (SQ) ---
EXAM DESCRIPTION: PET CT SKULL/THIGH COMPLETED DATE/TIME: 04/05/2019 6:31 pm REASON FOR STUDY: MALIGNANT NEOPLASM OF MIDDLE LOBE, BRONCHUS OR LUNG C34.2 MALIGNANT NEOPLASM OF M IDDLE LOBE, BRONCHUS OR LUNG COMPARISON: 12/21/2018 RADIONUCLIDE AND DOSE: 12.2 mCi F18 FDG The route of agent administration: Intravenous FASTING BLOOD SUGAR: 78 mg/dl CONTRAST TYPE AND DOSE: No CT contrast given. TECHNIQUE: Blood glucose level was verified. Above dose of FDG was injected intravenously. 2-D seg mented attenuation correction images were obtained from the base of the skull to the midthighs. Nonc ontrast CT images were obtained for attenuation correction and fusion with emission images. CT image s were performed without oral or intravenous contrast and are not sensitive for parenchymal lesions. A series of overlapping emission PET images were obtained. Images reviewed and manipulated at [facility] work station by the radiologist. Images stored on PACS. LIMITATIONS: None. FINDINGS: HEAD AND NECK: No areas of abnormal metabolic activity in the soft tissues of the head and neck. CHEST: 1.4 cm level 2 pretracheal node 2.9 SUV, previously 4.1 SUV. Medial segment middle lobe hypermetabolic masslike consolidation 10.7 SUV, 2.8 cm maximum diameter. This is more inferior than the activity described in the middle lobe on the prior. ABDOMEN AND PELVIS: No areas of abnormal metabolic activity in the abdomen or pelvis. Expected physi ologic activity is present in the genitourinary system and bowel. PROXIMAL LOWER EXTREMITIES: No areas of abnormal metabolic activity in the soft tissues of the lower extremities. BONES: No abnormal metabolic activity in the visualized skeleton. ADDITIONAL CT FINDINGS: Increasing consolidation in the radiation port medial right lower lung. Stable non hypermetabolic small epicardial nodes. Right-sided port tip in the SVC. No other additio nal significant findings on the noncontrast CT images. OTHER: Liver background 2.0 SUV. Blood pool 1.7 SUV. IMPRESSION: Favorable response to therapy of adenopathy. There is a new hypermetabolic area of consolidation in the middle lobe within the radiation port. Th is is possibly infectious or inflammatory but will need close follow-up. TECHNICAL DOCUMENTATION: JOB ID: [id number] [employer]- All Rights Reserved Reading location - IP/workstation name: [email or web address]
== END ==
LOC: RAD 16:13
PROVIDERS: ATTEND Internal Medicine Medical Oncology
DX: C34.2 Malignant neoplasm of middle lobe, bronchus or lung (principal)
CPT/HCPCS: 78815; A9552

== ENCOUNTER → 2019-06-14 | Outpatient (CLI) | payer MEDICARE ==
--- NOTE | 2019-06-15 08:49 | RADIOLOGY REPORT (SQ) ---
EXAM DESCRIPTION: PET CT SKULL/THIGH COMPLETED DATE/TIME: 06/15/2019 3:19 am REASON FOR STUDY: (C34.2)MALIGNANT NEOPLASM OF MIDDLE LOBE, BRONCHUS OR LUNG C34.2 MALIGNANT NEOPLA SM OF MIDDLE LOBE, BRONCHUS OR LUNG COMPARISON: 04/05/2019 and 12/21/2018. RADIONUCLIDE AND DOSE: 10 mCi F18 FDG The route of agent administration: Intravenous FASTING BLOOD SUGAR: 105 mg/dl CONTRAST TYPE AND DOSE: No CT contrast given. TECHNIQUE: Blood glucose level was verified. Above dose of FDG was injected intravenously. 2-D seg mented attenuation correction images were obtained from the base of the skull to the midthighs. Nonc ontrast CT images were obtained for attenuation correction and fusion with emission images. CT image s were performed without oral or intravenous contrast and are not sensitive for parenchymal lesions. A series of overlapping emission PET images were obtained. Images reviewed and manipulated at [facility] work station by the radiologist. Images stored on PACS. LIMITATIONS: None. FINDINGS: HEAD AND NECK: No areas of abnormal metabolic activity in the soft tissues of the head and neck. CHEST: Again seen is a 2.4 cm mass in the inferior medial right middle lobe (axial series 3, image 89 ), prior measurement 2.8 cm. Mean SUV 7.66, prior value 10.7. 1.2 cm pretracheal lymph node (axial series 3, image 70), prior measurement 1.4 cm. Mean SUV 3.02, p rior value 2.9. There are new faint densities in both lungs with slight increased activity. Faint subpleural density in the posterolateral left upper lobe (axial series 3, image 55) measuring 4 x 9 mm with mean SUV 2. 45. Streaky parenchymal density in the posterior right lower lobe with small focal area of increased activity (axial series 3, image 82). Mean SUV 2.11. ABDOMEN AND PELVIS: No areas of abnormal metabolic activity in the abdomen or pelvis. Expected physi ologic activity is present in the genitourinary system and bowel. PROXIMAL LOWER EXTREMITIES: No areas of abnormal metabolic activity in the soft tissues of the lower extremities. BONES: No abnormal metabolic activity in the visualized skeleton. ADDITIONAL CT FINDINGS: No additional significant findings on the noncontrast CT images. OTHER: Background blood pool activity mean SUV 1.51. Background liver activity mean SUV 2.36. No ot her significant findings. IMPRESSION: 1. PREVIOUSLY SEEN MASS IN THE INFERIOR MEDIAL RIGHT MIDDLE LOBE IS SLIGHTLY SMALLER WITH SOME DECREA SE IN THE MEAN SUV VALUE. 2. PRETRACHEAL LYMPH NODE IS SLIGHTLY SMALLER. MEAN SUV VALUE WITH LITTLE CHANGE. 3. NEW FAINT DENSITIES IN BOTH LUNGS WITH SLIGHT INCREASED ACTIVITY. THE DENSITY IN THE POSTERIOR RI GHT LOWER LOBE COULD REPRESENT INFLAMMATION/PNEUMONITIS FROM RADIATION THERAPY. FAINT DENSITY IN THE POSTEROLATERAL LEFT UPPER LOBE IS NONSPECIFIC. COULD REPRESENT FOCAL INFLAMMATION ALTHOUGH DEVELOPI NG MALIGNANCY NOT ENTIRELY EXCLUDED. TECHNICAL DOCUMENTATION: JOB ID: [id number] [employer]- All Rights Reserved Reading location - IP/workstation name: [email or web address]
== END ==
LOC: RAD 14:43
PROVIDERS: ATTEND Internal Medicine Medical Oncology
DX: C34.2 Malignant neoplasm of middle lobe, bronchus or lung (principal)
CPT/HCPCS: 78815; A9552